=== PATIENT | male | born 1945 | race Caucasian/White ===

== ENCOUNTER 2017-05-23 12:06 | Inpatient (IN) | payer OTHER ==
[~2017-05-23] VITALS: Ht 177.8 cm; Wt 93.2 kg
[~2017-05-23 12:06] MED LIST: Ascorbic Acid,Ester- PO; Aspirin Chewable PO; Cozaar PO; Flexeril PO; Glucophage PO; HYGROTON25 MG PO; Lipitor PO; Neurontin PO; Percocet 5/325,Endoc PO; Prandin PO; Protonix PO; TYLENOL REGULA325 MG PO; Toprol XL PO
[2017-05-23 12:50] LABS: BASOPHIL (%) 0.3 % (0-1); EOSINOPHIL (%) 0.1 % (0-5); HEMOGLOBIN 13.6 G/DL (12.5-16.6); IMMATURE GRANULOCYTE (%) 0.3 % (0.0-0.7); LYMPHOCYTE (%) 14.5 % (15-42); LYMPHOCYTE COUNT 1.3 K/uL (1.0-2.8); MCH 31.9 PG (29.0-34.0); MCHC 35.8 G/DL (30.0-36.0); MONOCYTE (%) 8.3 % (3-12); MONOCYTE COUNT 0.8 K/uL (0-0.8); NEUTROPHIL (%) 76.5 % (45-76); PLATELET COUNT 197 K/uL (156-360); RBC DIS.WIDTH-CV 12.9 % (11.8-14.6); RBC DIS.WIDTH-SD 41.8 % (39-53); RED BLOOD COUNT 4.27 M/uL (4.00-5.50); WHITE BLOOD COUNT 9.1 K/uL (4.1-10.2)
[2017-05-23 13:05] LABS: CHLORIDE 105 mEq/L (99-109); POTASSIUM 4.1 mEq/L (3.7-5.4); SODIUM 143 mEq/L (136-147)
[2017-05-23 13:07] LABS: GLUCOSE 157 mg/dL (70-99)
[2017-05-23 13:11] LABS: CREATININE 1.3 mg/dL (0.6-1.3); GFR ESTIMATE (CALCULATED) 58 mL/min/ (58.99-99999)
[2017-05-23 13:12] LABS: UREA NITROGEN (BUN) 23 mg/dL (9-23)
[2017-05-23] MEDS ORDERED: VITAMIN C500 M6 PO (13:28)
[2017-05-23] MEDS ORDERED: COZAAR50 MG PO (13:30)
[2017-05-23] MEDS ORDERED: BAYER CHEWABLE81 MG PO (13:30)
[2017-05-23] MEDS ORDERED: FLOMAX0.4 MG PO (13:31)
[2017-05-23] MEDS ORDERED: NEURONTIN300 MG PO (13:31)
[2017-05-23] MEDS ORDERED: PROTONIX40 MG PO ×2 (13:32→13:33)
[2017-05-23] MEDS ORDERED: TOPROL XL50 MG PO (13:32)
[2017-05-23] MEDS ORDERED: HYDROCHLOROTHIA25 MG PO (13:33)
[2017-05-23] MEDS ORDERED: LIPITOR20 MG PO (13:34)
[2017-05-23] MEDS ORDERED: AMARYL1 MG PO (13:35)
[2017-05-23] MEDS ORDERED: VICODIN 5-3001 EACH PO (13:36)
[2017-05-23 17:50] LABS: CHLORIDE 106 mEq/L (99-109); POTASSIUM 4.1 mEq/L (3.7-5.4); SODIUM 142 mEq/L (136-147)
[2017-05-23 17:51] LABS: GLUCOSE 144 mg/dL (70-99)
[2017-05-23 17:55] LABS: CREATININE 1.2 mg/dL (0.6-1.3); GFR ESTIMATE (CALCULATED) > 59 mL/min/ (58.99-99999)
[2017-05-23 17:56] LABS: UREA NITROGEN (BUN) 21 mg/dL (9-23)
[2017-05-23 18:39] VITALS: BP 168/71
[2017-05-23 20:18] VITALS: BP 184/88
[2017-05-23 21:21] VITALS: BP 150/80
[2017-05-24] VITALS (7 sets, daily range): BP systolic 144–177; BP diastolic 64–82
[2017-05-25 04:10] VITALS: BP 112/63
[2017-05-25 08:17] VITALS: BP 142/65
[2017-05-25] MEDS ORDERED: MEDROL DOSEPAK4 MG PO (10:59)
== END 2017-05-25 15:28 | disposition home or self-care (01) | DRG 921 ==
LOC: EME 12:06 → EDOF 16:21 → ENRESERV 17:04 → EDOF 17:06 → ENRESERV 17:44 → 3EAST 18:18
PROVIDERS: Emergency Medicine; Neurological Surgery
DX: T81.89XA Other complications of procedures, not elsewhere classified, initial encounter (principal); R13.19 Other dysphagia; Y83.8 Other surgical procedures as the cause of abnormal reaction of the patient, or of later complication, without mention of misadventure at the time of the procedure; E86.0 Dehydration; I10 Essential (primary) hypertension; E11.9 Type 2 diabetes mellitus without complications; E78.00 Pure hypercholesterolemia, unspecified; K21.9 Gastro-esophageal reflux disease without esophagitis; Z98.1 Arthrodesis status; Z79.84 Long term (current) use of oral hypoglycemic drugs; Z79.82 Long term (current) use of aspirin; Z87.442 Personal history of urinary calculi
CPT/HCPCS: 71045; 72020; 80048; 80048 91; 82948; 85025; 92526 GN; 92610 GN; 99281; 99285; J1100; J1815; J2920; J3010; J3480; J7030; S0028